=== PATIENT | male | born 1950 | race Caucasian/White ===

== ENCOUNTER 2016-09-04 21:26 | Emergency (ER) | payer MEDICARE, OTHER ==
[~2016-09-04] VITALS: Ht 170.2 cm; Wt 81.8 kg
[~2016-09-04 21:26] MED LIST: ATOR10TA65 PO; IBUP-1542 PO
[2016-09-04 21:31] VITALS: Ht 170.2 cm; Wt 81.8 kg
--- NOTE | 2016-09-04 22:21 | ERA ---
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 HPI The patient is a 66-year-old male, presenting to the ER because of left-sided chest discomfort for an left upper and left lower extremity discomfort while he was living in agreement with his son about 8 pm. The symptoms are getting better, however he still complains of chest discomfort 3/. He had similar symptoms previously, denies fever, chills, neck pain, chest pain with exertion or vomiting or diaphoresis. He denies abdominal pain, nausea, vomiting, dysuria , diarrhea. He does not smoke nor drink Past medical history: Dyslipidemia Past surgical history: None ROS All systems reviewed and are negative except as per history of present illness. Medications Home Meds Reported Medications Garlic (Garlic) 500 Mg Capsule, 500 MG PO, CAP 09/04/16 Fenofibrate Nanocrystallized* (Fenofibrate*) 48 Mg Tablet, 48 MG PO DAILY, TAB 09/04/16 Atorvastatin Calcium (Atorvastatin Calcium) 10 Mg Tab, 10 MG PO HS, TAB 08/23/14 Discontinued Reported Medications Ibuprofen* (Ibuprofen*) 600 Mg Tablet, 600 MG PO Q6H Y for PAIN, TAB 08/23/14 Allergies Allergies: Coded Allergies: No Known Allergy (Unverified , 08/23/14) PMhx/Soc History of Surgery: No Anesthesia Reaction: No Hx Neurological Disorder: No Hx Respiratory Disorders: No Hx Cardiac Disorders: Yes (High cholesterol) Hx Psychiatric Problems: No Hx Miscellaneous Medical Probl: No Hx Alcohol Use: Yes Hx Substance Use: No Hx Tobacco Use: Yes (quit 07) Physical Exam Vitals Vital Signs Date Time Temp Pulse Resp B/P Pulse Ox O2 Delivery O2 Flow Rate FiO2 09/05/16 03:27 64 19 125/78 100 09/04/16 21:31 97.5 70 18 163/86 99 Physical Exam Const: No acute distress. Head: Atraumatic. Eyes: Normal Conjunctiva. ENT: Normal External Ears, Nose and Mouth. Neck: Full range of motion. No meningismus. Resp: Clear to auscultation bilaterally. Cardio: Regular rate and rhythm, no murmurs. Abd: Soft, non distended, normal bowel sounds, non tender. Skin: No petechiae or rashes. Back: No midline or flank tenderness. Ext: No cyanosis, or edema. Neur: Awake and alert. No focal deficit Psych: Normal Mood and Affect. Result Diagram: 09/04/16232409/04/162324 Results 24 hrs Laboratory Tests Test 09/04/16 23:25 09/05/16 02:15 White Blood Count 6.110^3/ul Red Blood Count 4.3010^6/ul Hemoglobin 13.8g/dl Hematocrit 40.7% Mean Corpuscular Volume 94.7fl Mean Corpuscular Hemoglobin 32.1pg Mean Corpuscular Hemoglobin Concent 33.9g/dl Red Cell Distribution Width 13.2% Platelet Count 25654^3/UL Mean Platelet Volume 12.8fl Neutrophils % 51.2% Lymphocytes % 33.2% Monocytes % 11.6% Eosinophils % 3.0% Basophils % 0.3% Nucleated Red Blood Cells % 0.0/100WBC Neutrophils # 3.110^3/ul Lymphocytes # 2.010^3/ul Monocytes # 0.710^3/ul Eosinophils # 0.210^3/ul Basophils # 0.010^3/ul Nucleated Red Blood Cells # 0.010^3/ul Prothrombin Time 12.2Sec Prothrombin Time Ratio 1.0 INR International Normalized Ratio 0.91 Activated Partial Thromboplast Time 26.5Sec Sodium Level 138mmol/L Potassium Level 3.6mmol/L Chloride Level 106mmol/L Carbon Dioxide Level 24mmol/L Anion Gap 12 Blood Urea Nitrogen 11mg/dl Creatinine 1.01mg/dl Glucose Level 111mg/dl Calcium Level 9.2mg/dl Troponin I < 0.012ng/ml < 0.012ng/ml Current Medications Medications (Trade) Dose Ordered Sig/Nicole Route PRN Reason Start Time Stop Time Status Last Admin Dose Admin Acetaminophen/ Hydrocodone Bitart ([place] (10325)) 1 tab ONCE ONCE PO 09/04/16 23:00 09/04/16 23:01 DC 09/04/16 22:48 Ondansetron HCl (Zofran Odt) 4 mg ONCE STAT ODT 09/04/16 22:31 09/04/16 22:32 DC 09/04/16 22:46 Procedures/[place] [address] Radiology Main Line: [phone] DIAGNOSTIC IMAGING REPORT Patient: MACI FLEMING : 1950 Age: 66 Sex: M MR #: [id number] DOS: 09/04/162230 Ordering MD: CRISTOFER CROWLEY MD Location: E/R Room/Bed: PROCEDURE: XR Chest. CLINICAL INDICATION: Chest pain. TECHNIQUE: Single frontal chest x-ray. COMPARISON: None. FINDINGS: The cardiomediastinal silhouette is unremarkable. There is no congestive heart failure.. No focal infiltrate is seen. There is no pleural effusion. There is no pneumothorax. The osseous structures are unremarkable. IMPRESSION: 1. No active disease. RPTAT: [facility] .Cristofer Bueno MD, MD Date Time Electronically viewed and signed by .Cristofer Bueno MD, on 09/04/2016 23:50 .K/ CC: CRISTOFER CROWLEY MD EK hrs. read by emergency physician Rate/Rhythm: Normal Sinus Rhythm 69 beats/min QRS, ST, T-waves: No ST elevation, no T inversion Impression: Normal EKG EK hrs. read by emergency physician Rate/Rhythm: Normal Sinus Rhythm 60 beats/min QRS, ST, T-waves: No ST elevation, no T inversion Impression: Normal EKG MEDICAL MAKING DECISION: The patient is a 66-year-old male, presenting to the ER because of acute chest pain after having an argument with his son, most likely due to emotionally upset and musculoskeletal pain. He was treated with [place] 10 mg p.o. for pain and Zofran ODT for nausea with good response. The differential diagnoses considered include but are not limited to acute coronary syndrome, acute myocardial infarction, pericarditis, pulmonary embolism , aortic dissection, pneumonia, pleural effusion, pneumothorax, GERD, chest wall pain. Departure Diagnosis: Primary Impression: Chest pain Additional Impression: Anemia Condition: Good Comments The patient presents with chest pain and I considered pulmonary embolism, aortic dissection, pneumothorax among other diagnoses. Evaluation for acute coronary syndrome was performed. The HEART score (www.mdcalc.com) was utilized for risk stratification and found to be <= 3. Repeat EKG and troponin @ 3 hours were unchanged. Based on this evaluation the patients risk of major adverse cardiac events is <1%. Shared decision making occurred with patient and the decision has been made to discharge the patient for outpatient evaluation and functional study within 72 hours. The patient's blood pressure was elevated (>120/80) but appears stable without evidence of hypertension emergency or urgency. The patient was counseled about the risks of hypertension and urged to pursue outpatient monitoring and therapy within a week with their primary care physician. CRISTOFER CROWLEY MD September 04, 2016 22:21
[2016-09-04] MEDS ORDERED: ONDANSETRON (ODT) 4 MG TAB ODT STA (22:31)
[2016-09-04] MEDS ORDERED: HYDROCODONE/APAP (10/325) TAB PO ONE (23:00)
[2016-09-04] MEDS ORDERED: GARL500C9 PO (23:06)
[2016-09-04] MEDS ORDERED: FENO48TA4 PO (23:06)
--- NOTE | 2016-09-04 23:51 | RADRPT ---
PROCEDURE: XR Chest. CLINICAL INDICATION: Chest pain. TECHNIQUE: Single frontal chest x-ray. COMPARISON: None. FINDINGS: The cardiomediastinal silhouette is unremarkable. There is no congestive heart failure.. No focal i nfiltrate is seen. There is no pleural effusion. There is no pneumothorax. The osseous structures are unremarkable. IMPRESSION: 1. No active disease. RPTAT: [facility] .Cristofer Bueno MD, Date Time Electronically viewed and signed by .Cristofer Bueno MD, MD on 09/04/2016 23:50 .K/
[2016-09-04 23:58] LABS: ADD SCAN DIFF NO
[2016-09-05 00:04] LABS: BASOPHILS % 0.3 % (0.0-2.0); EOSINOPHILS # 0.2 10^3/ul (0.0-0.5); HEMATOCRIT 40.7 % (42.0-52.0); HEMOGLOBIN 13.8 g/dl (14.0-18.0); LYMPHOCYTES % 33.2 % (15.0-51.0); MEAN CORPUSCULAR HEMOGLOBIN 32.1 pg (29.0-33.0); MEAN CORPUSCULAR HGB CONC 33.9 g/dl (32.0-37.0); MEAN CORPUSCULAR VOLUME 94.7 fl (82.0-101.0); MEAN PLATELET VOLUME 12.8 fl (7.4-10.4); MONOCYTE # 0.7 10^3/ul (0.3-0.9); MONOCYTES % 11.6 % (0.0-11.0); NEUTROPHIL # 3.1 10^3/ul (1.6-7.5); NEUTROPHILS % 51.2 % (39.0-77.0); PLATELET COUNT 226 10^3/UL (140-415); RED CELL DISTRIBUTION WIDTH 13.2 % (11.5-14.5); WHITE BLOOD COUNT 6.1 10^3/ul (4.8-10.8)
[2016-09-05 00:24] LABS: INR 0.91; PARTIAL THROMBOPLASTIN TIME 26.5 Sec (25.0-35.0); PROTIME 12.2 Sec (12.2-14.2)
[2016-09-05 00:29] LABS: ANION GAP 12 (8-16); BLOOD UREA NITROGEN 11 mg/dl (7-20); CALCIUM 9.2 mg/dl (8.4-10.2); CARBON DIOXIDE 24 mmol/L (21-31); CHLORIDE 106 mmol/L (97-110); CREATININE 1.01 mg/dl (0.61-1.24); GLUCOSE 111 mg/dl (70-220); POTASSIUM 3.6 mmol/L (3.5-5.1); SODIUM 138 mmol/L (135-144)
[2016-09-05 00:42] LABS: TROPONIN-I < 0.012 ng/ml (0.00-0.12)
[2016-09-05 03:27] VITALS: BP 125/78; PULSE 64; RESP 19
== END 2016-09-05 04:07 | disposition home or self-care (01) ==
LOC: E/R 21:26
DX: R07.9 Chest pain, unspecified (principal); D64.9 Anemia, unspecified; Z87.891 Personal history of nicotine dependence
CPT/HCPCS: 36415; 71010; 80048; 84484; 85025; 85610; 85730; 93005

== ENCOUNTER 2017-08-11 09:50 | Emergency (ER) | END 2017-08-11 10:25 | disposition home or self-care (01) ==